=== PATIENT | female | born 1995 | race Hispanic/Latino ===

== ENCOUNTER 2017-06-09 18:44 | Inpatient (IN) | payer MEDICAID ==
[~2017-06-09] VITALS: Ht 154.9 cm; Wt 79.4 kg
[2017-06-09] MEDS ORDERED: LACTATED RINGERS 1000ML 1,000 ML IV PRN (19:49)
[2017-06-09 20:10] LABS: APPEARANCE,URINE Cloudy (CLEAR); BILIRUBIN,URINE Negative (NEGATIVE); COLOR,URINE Yellow (YELLOW); GLUCOSE, URINE (UA) 500 mg/dL (NEGATIVE); KETONES,URINE 15 mg/dL (NEGATIVE); LEUKOCYTE ESTERASE ,URINE Moderate (NEGATIVE); NITRATE,URINE Positive (NEGATIVE); OCCULT BLOOD,URINE Negative (NEGATIVE); PH,URINE 6.5 (5.0-8.0); PROTEIN,URINE Negative (NEGATIVE)
[2017-06-09 20:46] LABS: SQUAMOUS EPITHELIAL CELL,UR TNTC /LPF (0-2)
[2017-06-09 20:47] LABS: BACTERIA,URINE Moderate /HPF (None Seen); RBC,URINE None Seen /HPF (0-1)
[2017-06-10 01:25] LABS: HEMATOCRIT 35.9 % (36-48); MEAN CORPUSCULAR HEMOGLOBIN 29.5 pg (27.0-33.0); MEAN CORPUSCULAR HGB CONC 34.1 g/dL (32.0-36.0); MEAN CORPUSCULAR VOLUME 86.7 fL (79-99); PLATELET COUNT (AUTO) 225 K/uL (130-400); RED BLOOD CELL COUNT(AUTO) 4.14 MIL/uL (4.00-5.50); RED CELL DISTRIBUTION WIDTH 13.3 % (11.0-15.5); WHITE BLOOD COUNT (AUTO) 9.5 K/uL (4.8-10.8)
[2017-06-10] MEDS ORDERED: LACTATED RINGERS 1000ML 1,000 ML IV ONE ×2 (01:46→11:28)
[2017-06-10] MEDS ORDERED: OXYTOCIN 10 USP UNITS/ML ONE ×2 (01:47→11:28)
[2017-06-10] MEDS ORDERED: OXYTOCIN 10 USP UNITS/ML 20 UNIT in LACTATED RINGERS 1000ML 1,000 ML IV SCH (02:00)
[2017-06-10] MEDS ORDERED: PROMETHAZINE HCL 25 MG/ML 1ML AMPULE IM ONE (05:40)
[2017-06-10] MEDS ORDERED: MEPERIDINE-PF 50 MG/ML SYG ONE (05:41)
[2017-06-10] MEDS ORDERED: MEPERIDINE-PF 50 MG/ML SYG IVP ONE (05:45)
[2017-06-10] MEDS ORDERED: PROMETHAZINE HCL 25 MG/ML 1ML AMPULE IM SCH (05:45)
[2017-06-10] MEDS ORDERED: MEASLES/MUMPS/RUBELLA VACCINE, LIVE 0.5 ML/VIAL SQ PRN (11:00)
[2017-06-10] MEDS ORDERED: BENZOCAINE/LANOLIN/ALOE VERA 60 ML AEROSOL TP PRN (11:00)
[2017-06-10] MEDS ORDERED: OXYTOCIN-LR 20 UNITS/1000 ML 1,000 ML IV SCH (11:00)
[2017-06-10] MEDS ORDERED: WITCH HAZEL 1 PAD TP PRN (11:00)
[2017-06-10] MEDS ORDERED: ACETAMINOPHEN 325 MG TAB PO PRN (11:00)
[2017-06-10] MEDS ORDERED: DIPH,PERTUSS(ACELL),TET VAC/PF 0.5 ML VIAL IM PRN (11:00)
[2017-06-10] MEDS ORDERED: LANOLIN 30GM OINTMENT TP PRN (11:00)
[2017-06-10 13:12] VITALS: BP 106/51
[2017-06-10 13:54] VITALS: BP 128/68
[2017-06-10] MEDS ORDERED: PNV1TABL17 PO (14:05)
[2017-06-10] MEDS: IBUPROFEN 800 MG TAB PO PRN (15:24)
[2017-06-10 15:35] VITALS: BP 113/71
[2017-06-10 19:56] VITALS: BP 107/78
[2017-06-10] MEDS: DOCUSATE SODIUM 100 MG CAP PO SCH (20:51)
[2017-06-10 22:48] VITALS: BP 118/63
[2017-06-11 03:33] VITALS: BP 117/72
[2017-06-11] MEDS: IBUPROFEN 800 MG TAB PO PRN (04:05)
[2017-06-11 05:32] LABS: HEMATOCRIT 28.5 % (36-48); MEAN CORPUSCULAR HEMOGLOBIN 28.6 pg (27.0-33.0); MEAN CORPUSCULAR HGB CONC 33.3 g/dL (32.0-36.0); MEAN CORPUSCULAR VOLUME 86.1 fL (79-99); PLATELET COUNT (AUTO) 203 K/uL (130-400); RED BLOOD CELL COUNT(AUTO) 3.31 MIL/uL (4.00-5.50); RED CELL DISTRIBUTION WIDTH 13.5 % (11.0-15.5); WHITE BLOOD COUNT (AUTO) 13.2 K/uL (4.8-10.8)
[2017-06-11 07:24] LABS: HEPATITIS Bs ANTIGEN SCREEN P Negative (Negative)
[2017-06-11 07:41] VITALS: BP 98/66
[2017-06-11] MEDS: DOCUSATE SODIUM 100 MG CAP PO SCH (08:59)
[2017-06-11] MEDS ORDERED: IBUP-2070 PO (10:57)
[2017-06-11] MEDS ORDERED: IRON-10 PO (10:57)
[2017-06-11 11:24] VITALS: BP 107/70
== END 2017-06-11 15:00 | disposition home or self-care (01) | DRG 560 ==
LOC: LDH 18:44 → WSH 06-10 13:14
PROVIDERS: ADMIT Obstetrics & Gynecology; ATTEND Obstetrics & Gynecology
PROC: 10E0XZZ Delivery of Products of Conception, External Approach (ICD-10-PCS; principal; 2017-06-09)
PROC: 10907ZC Drainage of Amniotic Fluid, Therapeutic from Products of Conception, Via Natural or Artificial Opening (ICD-10-PCS; 2017-06-09)
PROC: 3E0234Z Introduction of Serum, Toxoid and Vaccine into Muscle, Percutaneous Approach (ICD-10-PCS; 2017-06-09)
PROC: 3E0134Z Introduction of Serum, Toxoid and Vaccine into Subcutaneous Tissue, Percutaneous Approach (ICD-10-PCS; 2017-06-09)
PROC: 3E0P3VZ Introduction of Hormone into Female Reproductive, Percutaneous Approach (ICD-10-PCS; 2017-06-09)
DX: O69.81X0 Labor and delivery complicated by cord around neck, without compression, not applicable or unspecified (principal); Z23 Encounter for immunization; Z37.0 Single live birth; Z3A.39 39 weeks gestation of pregnancy
CPT/HCPCS: 36415; 81001; 85027; 86592; 86850; 86900; 86901; 87340; 90715; A4351; A4606; J2175; J2550; J2590; J7120

== ENCOUNTER 2020-05-25 07:25 | Day surgery (SDC) | payer MEDICAID ==
[2020-05-21 14:54] LABS: BASOPHILS % (AUTO) 0.2 % (0.0-5.0); EOSINOPHILS % (AUTO) 6.8 % (0.0-8.0); HEMATOCRIT 44.2 % (36-48); LYMPHOCYTES % (AUTO) 21.5 % (21.0-51.0); MEAN CORPUSCULAR HEMOGLOBIN 28.5 pg (27.0-33.0); MEAN CORPUSCULAR HGB CONC 31.4 g/dL (32.0-36.0); MEAN CORPUSCULAR VOLUME 90.8 fL (79-99); MONOCYTES % (AUTO) 6.4 % (3.0-13.0); NEUTROPHILS % (AUTO) 64.5 % (40.0-77.0); PLATELET COUNT (AUTO) 231 K/uL (130-400); RED BLOOD CELL COUNT(AUTO) 4.87 MIL/uL (4.00-5.50); RED CELL DISTRIBUTION WIDTH 13.5 % (11.0-15.5); WHITE BLOOD COUNT (AUTO) 8.7 K/uL (4.8-10.8)
[2020-05-24 10:26] VITALS: BP 124/75
[~2020-05-25] VITALS: Ht 154.9 cm; Wt 86.2 kg
[2020-05-25] VITALS (15 sets, daily range): BP systolic 101–137; BP diastolic 64–87
[~2020-05-25 07:25] MED LIST: CALDOLOR 800MG+NS 250ML 250 ML IV SCH; CEFAZOLIN SODIUM 1 GM VIAL IVP SCH; DEXAMETHASONE SOD PHOSPHATE 10MG/ML 1ML VIAL ONE; FENTANYL CITRATE PF 50 MCG/1 ML 2ML VIAL ONE; GLYCOPYRROLATE 1 MG/5 ML SYRINGE ONE; LACTATED RINGERS 1000ML 1,000 ML IV SCH; LIDOCAINE PF 2% 5ML ABBOJECT ONE; MIDAZOLAM HCL 1 MG/ML 2ML VIAL ONE; NEOSTIGMINE 5MG/5ML SYR IV ONE; ONDANSETRON HCL 4 MG/2 ML VIAL ONE; PHENYLEPHRINE HCL 10 MG/ML 1ML VIAL IV ONE; PNV1TABL17 PO; PROPOFOL 10 MG/ML 20ML VIAL IV ONE; ROCURONIUM 10MG/1ML SYR 10 MG/ML ML ONE; SUCCINYLCHOLINE 200MG/10ML SYR ONE
[2020-05-25] MEDS ORDERED: BUPIVACAINE/PF 0.25% 50ML VIAL IJ ONE (08:54)
[2020-05-25] MEDS ORDERED: FENTANYL CITRATE PF 50 MCG/1 ML 2ML VIAL ONE (09:14)
== END 2020-05-25 11:15 | disposition home or self-care (01) ==
LOC: DAH 07:25
PROVIDERS: ATTEND Obstetrics & Gynecology
DX: Z30.2 Encounter for sterilization (principal); Z20.828 Contact with and (suspected) exposure to other viral communicable diseases
CPT/HCPCS: 36415 ×2; 58670; 84703; 85025; 86850 ×2; 86900 ×2; 86901 ×2; A4215; A4221; A4222; A4223; A4351; A4600; A4663; A4930; A6260; C1769 ×2; C9803; G0168; J0330; J0690; J1100; J1741; J2001; J2250; J2370; J2405; J2704; J2710; J3010 ×2; J3490 ×2; J7030; J7120; U0003